=== PATIENT | female | born 1980 | race Caucasian/White ===

== ENCOUNTER 2019-04-07 05:39 | Inpatient (IN) | payer OTHER ==
[2019-04-07] MEDS ORDERED: Acetaminophen 500 MG Tab PO ONE (05:45)
[2019-04-07] MEDS ORDERED: Celecoxib 200 MG Cap PO ONE (05:45)
[2019-04-07] MEDS ORDERED: Scopolamine 1.5 MG Transdermal Patch TOP SCH (05:45)
[2019-04-07] MEDS ORDERED: Gabapentin 300 MG Cap PO ONE (05:45)
[2019-04-07] MEDS ORDERED: Dextrose 5%-Lactated Ringers 1,000 ML IV SCH (06:00)
[2019-04-07] MEDS ORDERED: fentaNYL 250 MCG/5 ML SDV ONE ×2 (06:41→08:34)
[2019-04-07] MEDS ORDERED: Ondansetron 4 MG/2 ML SDV ONE (06:42)
[2019-04-07] MEDS ORDERED: Propofol 200 MG/20 ML SDV ONE (06:42)
[2019-04-07] MEDS ORDERED: Rocuronium 50 MG/5 ML Vial ONE ×2 (06:42→08:59)
[2019-04-07] MEDS ORDERED: Glycopyrrolate 0.2 MG/ML 5 ML MDV ONE (06:42)
[2019-04-07] MEDS ORDERED: Neostigmine Methylsulfate 1 MG/ML 5 ML Syringe ONE (06:42)
[2019-04-07] MEDS ORDERED: Midazolam 1 MG/ML 2 ML SDV ONE (06:42)
[2019-04-07] MEDS ORDERED: Dexamethasone 4 MG/ML SDV ONE (06:42)
[2019-04-07] MEDS ORDERED: cefOXitin 2 GM in Sodium Chloride 0.9% 50 ML IV ONE (07:15)
[2019-04-07] MEDS ORDERED: Ketamine 500 MG/5 ML MDV IV SCH (07:30)
[2019-04-07] MEDS ORDERED: Ketamine 50 MG in Sodium Chloride 0.9% 49.5 ML IV SCH (07:30)
[2019-04-07] MEDS: cefOXitin 2 GM Vial ONE ×2 (08:10→09:48)
[2019-04-07] MEDS ORDERED: Lactated Ringers 1,000 ML ONE (09:15)
[2019-04-07] MEDS: Tranexamic Acid 1,000 MG in Sodium Chloride 0.9% 50 ML IV SCH ×2 (09:30→13:20)
[2019-04-07] MEDS ORDERED: hydrOXYzine HCl 100 MG/2 ML SDV IM ONE (09:58)
[2019-04-07] MEDS ORDERED: fentaNYL 100 MCG/2 ML SDV IVPUSH ONE ×2 (10:14→10:54)
[2019-04-07] MEDS ORDERED: Meperidine PF 100 MG/ML Syringe IM ONE (10:35)
[2019-04-07] MEDS ORDERED: Meclizine 25 MG Tab PO PRN (12:02)
[2019-04-07] MEDS ORDERED: Metoclopramide 10 MG/2 ML SDV IVPUSH PRN (12:43)
[2019-04-07] MEDS ORDERED: Ondansetron 4 MG/2 ML SDV IVPUSH PRN (12:43)
[2019-04-07] MEDS ORDERED: HYDROmorphone 1 MG/ML Syringe IV PRN (12:43)
[2019-04-07] MEDS ORDERED: Labetalol 20 MG/4 ML Syringe IVPUSH PRN (12:43)
[2019-04-07] MEDS ORDERED: diphenhydrAMINE 50 MG/ML SDV IVPUSH PRN (12:43)
[2019-04-07] MEDS ORDERED: hydrOXYzine HCl 100 MG/2 ML SDV IM PRN (12:43)
[2019-04-07] MEDS ORDERED: Pantoprazole 40 MG Vial IVPUSH SCH (14:00)
[2019-04-07] MEDS: cefOXitin 2 GM in Sodium Chloride 0.9% 50 ML IV SCH ×2 (14:55→19:59)
[2019-04-07] MEDS: Gabapentin 250 MG/5 ML Solution ML 470 ML Bottle PO SCH ×2 (14:59→20:56)
[2019-04-07] MEDS: Acetaminophen Soln 650 MG/20.3 ML UD Cup PO SCH ×2 (14:59→19:55)
[2019-04-07] MEDS ORDERED: MVI, Adult with Vitamin K 10 ML, Thiamine 200 MG, Chromium/Copper/Mang/Selen/Zn 1 ML in... IV SCH ×4 (16:00)
[2019-04-07] MEDS: Heparin Sodium 5,000 Units/ML Vial SUBCUT SCH (20:56)
[2019-04-07] MEDS: Dextrose 5%-Lactated Ringers 1,000 ML IV SCH (22:52)
[2019-04-08] MEDS: Acetaminophen Soln 650 MG/20.3 ML UD Cup PO SCH ×4 (01:31→19:46)
[2019-04-08] MEDS ORDERED: Iopamidol 612 MG/ML 50 ML SDV PO STA (01:38)
[2019-04-08] MEDS: cefOXitin 2 GM in Sodium Chloride 0.9% 50 ML IV SCH ×2 (02:18→07:28)
[2019-04-08] MEDS: HYDROmorphone 0.5 MG/0.5 ML Syringe IVPUSH PRN ×2 (02:18→07:38)
--- NOTE | 2019-04-08 02:25 | CRLCR ---
PRELIMINARY IMPRESSIONS: 1. No evidence of contrast extravasation is noted on 2 static submitted images. 2. Surgical drain is present in the left upper quadrant. Agree with preliminary interpretation. No additional findings. Dictated by: Chadd Power MD @ 04/11/2019 13:35:30 (Electronically Signed)
[2019-04-08] MEDS: Dextrose 5%-Lactated Ringers 1,000 ML IV SCH ×2 (05:19→13:32)
[2019-04-08] MEDS: Celecoxib 200 MG Cap PO SCH (07:28)
[2019-04-08] MEDS ORDERED: Ondansetron 4 MG Tab.DIS PO PRN (08:19)
[2019-04-08] MEDS: Gabapentin 250 MG/5 ML Solution ML 470 ML Bottle PO SCH ×3 (10:08→20:45)
[2019-04-08] MEDS: Heparin Sodium 5,000 Units/ML Vial SUBCUT SCH ×2 (10:08→20:46)
[2019-04-08] MEDS: SCOPOLAMINE PATCH CHECK TOP SCH (10:09)
[2019-04-08] MEDS: HYDROmorphone 2 MG Tab PO PRN ×3 (10:18→19:46)
--- NOTE | 2019-04-08 11:10 | PN ---
DATE OF SERVICE: 04/08/2019 SUBJECTIVE: Martha is postoperative day 1. She has been quite sleepy. Pain has been controlled. Oral intake did increase after nursing staff gave her some med cups. REVIEW OF SYSTEMS: Remainder of review of systems negative for any pertinent positives and negatives. OBJECTIVE: GENERAL: Martha Payne is a pleasant 38-year-old female. VITAL SIGNS: TPR is 98.1, 89, 110. Blood pressure is 101/67. Her pulse was rechecked at 89. HEENT: Negative. NECK: Supple. HEART: Regular rate and rhythm. LUNGS: Clear. ABDOMEN: Dressing is dry and intact. Abdominal binder is on. EXTREMITIES: Without peripheral edema. ASSESSMENT: Diagnostic laparoscopy with: 1. Partial gastrectomy with Carie-en-Y gastrojejunostomy. 2. Repair of paraesophageal diaphragmatic hernia and excision of mediastinal lipoma for severe gastroesophageal reflux disease, esophageal dysmotility, large paraesophageal diaphragmatic hernia, and mediastinal lipoma. Date of surgery, 04/07/2019. Surgeon, Ant Olivares MD. PLAN: Decrease IV to 100 mL/hour. Step 2 gastric bypass diet without cereal. Dressing off, may shower. Dietary consultation. Dilaudid 2 mg every 4 hours p.r.n. pain, Zofran ODT 4 mg every 4 hours p.r.n. We will evaluate p.r.n. or in a.m. Rosanna Eastman PA-C /[id number]
[2019-04-08] MEDS: Pantoprazole 40 MG Tab.CR PO SCH (11:35)
[2019-04-08] MEDS ORDERED: MVI, Adult with Vitamin K 10 ML, Thiamine 200 MG, Chromium/Copper/Mang/Selen/Zn 1 ML in... IV SCH ×4 (16:00)
[2019-04-09] MEDS: HYDROmorphone 2 MG Tab PO PRN ×3 (01:05→10:28)
[2019-04-09] MEDS: Acetaminophen Soln 650 MG/20.3 ML UD Cup PO SCH ×2 (02:23→08:01)
[2019-04-09] MEDS: Dextrose 5%-Lactated Ringers 1,000 ML IV SCH (02:35)
[2019-04-09] MEDS: Celecoxib 200 MG Cap PO SCH (08:01)
[2019-04-09] MEDS: Pantoprazole 40 MG Tab.CR PO SCH (08:01)
[2019-04-09] MEDS ORDERED: Cyanocobalamin (Vitamin B12) 1,000 MCG/ML SDV IM ONE (09:00)
[2019-04-09] MEDS: Gabapentin 250 MG/5 ML Solution ML 470 ML Bottle PO SCH (10:10)
[2019-04-09] MEDS: Heparin Sodium 5,000 Units/ML Vial SUBCUT SCH (10:11)
[2019-04-09] MEDS: SCOPOLAMINE PATCH CHECK TOP SCH (10:12)
--- NOTE | 2019-04-11 13:48 | OR ---
DATE OF PROCEDURE: 04/07/2019 SURGEON: Ant Olivares MD PREOPERATIVE DIAGNOSES: Severe gastroesophageal reflux disease with Gaona's esophagus and associated esophageal dysmotility. POSTOPERATIVE DIAGNOSES: 1. Severe gastroesophageal reflux disease with Gaona's esophagus and associated esophageal dysmotility. 2. Large paraesophageal diaphragmatic hernia. 3. Mediastinal lipoma. OPERATIVE PROCEDURES: Diagnostic laparoscopy with: 1. Partial gastrectomy with Carie-en-Y gastrojejunostomy (82255). 2. Repair of paraesophageal diaphragmatic hernia with mesh (00631). 3. Excision of mediastinal lipoma (20151). ANESTHESIA: General. PRODUCTION ENGINEER: Rosanna Eastman PA-C. INDICATIONS FOR PROCEDURE: This is a 38-year-old, presenting with ongoing severe reflux and known Gaona's esophagus. She was initially contemplating a Ksenia fundoplication, but manometry showed abnormal contractions in the proximal esophagus and poor clearance of liquids and solids, making a Ksenia fundoplication type procedure contraindicated. She was, therefore, referred for a diverting type position, which would be a proximal gastrectomy, leaving a very small proximal gastric pouch and Carie-en-Y gastrojejunostomy, thus diverting all the bile and virtually all the acid production distal to the esophagogastric junction area. This procedure would be significantly different from a bariatric procedure in terms of the gastrojejunostomy would be fashioned with a much larger size, specifically a 28 mm EEA would be used rather than 21 or 25 mm, thus resulting in gastrojejunostomy leading to a less resistance to esophageal emptying. It will also make the limb lengths quite a bit shorter than the standard bariatric procedure in terms of both the biliopancreatic limb and Carie limb. The patient is aware that she will lose some weight, but this is designed primarily for an antireflux effect. Potential risks of the procedure including bleeding, infection, leaks from various GI tract closures, problems with bowel obstruction over time, as well as the possibility of cardiopulmonary, septic, or hemorrhagic complications leading to were discussed, and the patient wishes to proceed. DETAILS OF PROCEDURE: The patient was taken to the operating room and placed in the supine position. After general endotracheal anesthesia was induced, the abdomen was prepped and draped, and the patient had been converted to a lithotomy position. At 15 cm inferior and 5 cm left of the xiphoid process, a transverse incision was made, and the peritoneal cavity entered under direct vision and inflated to 15 mmHg pressure with CO2. Laparoscope was then reinserted. No underlying trocar insertion site injuries were seen. Bilateral subcostal transversus abdominis plane blocks were then placed, and 5 additional trocars were placed throughout upper and mid abdomen. The liver was then initially retracted to view the area of esophagogastric junction. The patient was noted to have a fairly large paraesophageal hernia with prolapse of perigastric fat and some gastric fundus, as well as tongue of omentum in a plane anterior to the course of the esophagus. We then proceeded with the formation of the Carie limb. The ligament of Treitz was identified and the small bowel was then traced out 30 cm distal to that point, where it was divided transversely with a JEAN-PAUL stapler. Small bowel was then traced out an additional 120 cm, where the audi-cj-sryv enteroenterostomy was accomplished with an internal firing of the 60 mm JEAN-PAUL stapler. Common opening was then closed transversely using the same stapler. The angles of anastomosis and mesenteric defect were then approximated with some 0 Ethibond stitch. The Carie limb was then brought through an antecolic position up to the level of the esophagogastric junction without tension. The liver was once again retracted anteriorly. The patient had some incarcerated omentum within the hernia sac, which was divided away from the diaphragmatic hernia sac with Harmonic scalpel. It was felt that the patient needed a formal posterior crural repair, given the extent of the diaphragmatic hernia. The peritoneum overlying the adria- esophagogastric junction was then divided anteriorly and then along the sides of the esophagus adjacent to the right and left crura respectively, and the retroesophageal dissection eventually completed. [place] drain was placed following this, and some remaining attachments of the esophagus and the lower-most mediastinum were divided with Harmonic Scalpel. During the course of the dissection, fairly substantial mediastinal lipoma was encountered, and this was taken out in 3 segments. The crural repair was then accomplished initially with 0 Ethibond sutures, reinforced with PTFE pledgets. The size of the repair was such that we felt an absorbable mesh reinforcement would be appropriate. A Phasix ST mesh was cut into a horseshoe-type configuration and then placed behind the esophagus overlying the crural repair and then along the crura on each side for roughly 3 cm. This was fixed in place with titanium tacking screws. The greater curvature of the stomach along its mid point was then opened, and the anvil of a 28 mm EEA stapler, which had a suture attached to its tip, was placed in the stomach. This was then brought out with the suture attached to a sharp clamp at a point 2 to 3 cm distal to the gastroesophageal junction. The anvil was then brought up into that position by pulling the suture and bringing the anvil through the gastric wall. This opening in the stomach was then closed with JEAN-PAUL purple loads. The initial pouch formation was then initiated just inferior to the point where the anvil had been pulled out of the stomach after division of the lesser curvature, omentum and dissection behind the stomach at that level. This initial firing was transversely oriented with a JEAN-PAUL purple load. The pouch was then further completed with additional firings of the JEAN-PAUL stapler up to and through the angle of His. Portion of the stomach was then excised along the initial staple line from the edge of the stapler inferiorly up to the level of esophagogastric junction, thus creating a much narrower and smaller volume gastric pouch. The divided end of the Carie limb was then opened and main body of the EEA stapler was brought out through the left lateral trocar site and positioned several centimeters into the opened bowel, brought up through the anvil and united with it, thus creating the gastrojejunostomy. Upon removal of the stapler, double donuts of mucosa were noted within it, and the small bowel was closed off with a vascular staple line. At that point, the gastrojejunostomy was reinforced with some 3-0 Vicryl seromuscular stitch, along with fibrin sealant. The leak test was accomplished with injection of 120 mL of air into the area of gastric pouch via a Duval sump tube, while the Carie limb was being compressed, and the area being covered with antibiotic-containing saline solution. No leaks were identified. A single Kyle-Hernandez drain was then placed through the left lateral trocar site and positioned adjacent to the gastrojejunostomy and from there up into the splenic fossa. The trocars were then sequentially removed. The fascia at the left lateral trocar site, which had been broaden out enough to admit the 28 mm EEA stapler, was closed with 0 Vicryl stitch. The skin at each incision closed with 4-0 Vicryl stitch, which was also used to affix the drain. The patient was taken to the recovery room in satisfactory condition. Physician senior sales assistant, Rosanna Eastman, played an essential role in assisting in this case, helping to position the patient, retract structures as needed, as well as suturing and cutting sutures when indicated. Her presence improved patient's safety and decreased the operative time. Ant Olivares MD /[id number]
--- NOTE | 2019-04-11 13:50 | DISCH ---
PREOPERATIVE DIAGNOSES: 1. Severe gastroesophageal reflux disease with Gaona's esophagus associated with esophageal dysmotility. 2. Large paraesophageal diaphragmatic hernia. 3. Mediastinal lipoma. 4. History of Raynaud syndrome. 5. Bmupw-Uznbgrsdp-Krbws syndrome. 6. Fibromyalgia. OPERATIVE PROCEDURES: Done on 04/07/2019, diagnostic laparoscopy with: 1. Partial gastrectomy with Carie-en-Y gastrojejunostomy. 2. Repair of paraesophageal diaphragmatic hernia with mesh. 3. Excision of mediastinal lipoma. SUMMARY: This is a 38-year-old with severe gastroesophageal reflux disease that has become quite refractory to medical management. On workup, she was noted have Gaona's esophagus and also a significant degree of esophageal dysmotility, the latter making her a poor candidate for a Ksenia fundoplication. Given this, she will be referred for a partial gastrectomy with Carie-en-Y gastrojejunostomy with the goal of leaving only a tiny bit of gastric secreting mucosa that can reflux into the esophagus and the rest of that by means of the Carie-en-Y configuration. The patient was noted to have a large paraesophageal hernia at the time of the procedure as well with the repair being augmented with some absorbable mesh, along with excision of mediastinal lipoma. Postoperatively, the patient has done well with no significant problems. She is tolerating a step-2 diet without difficulty and will be discharged home on Tylenol 650 p.o. q.6 hours p.r.n. pain and Celebrex 200 mg p.o. q.a.m. and Dilaudid 2 mg p.o. q.4 hours p.r.n. pain #40. She is instructed to continue the Zantac and omeprazole until she is off Celebrex and discontinue those at that time. Otherwise, she can continue the Antivert as previously. Followup will be with Rosanna Eastman at [facility] in [place] on Thursday04/19/19.
== END 2019-04-09 11:05 | disposition home or self-care (01) | DRG 328 ==
LOC: JP.SDSSCHI 05:39 → JP.SDS 05:39 → EDSTATUS 07:15 → JP.MS 10:15
PROVIDERS: ADMIT Surgery; ATTEND Surgery
PROC: 0D164ZA Bypass Stomach to Jejunum, Percutaneous Endoscopic Approach (ICD-10-PCS; principal; 2019-04-07)
PROC: 0DB64ZZ Excision of Stomach, Percutaneous Endoscopic Approach (ICD-10-PCS; 2019-04-07)
PROC: 0BUT4JZ Supplement Diaphragm with Synthetic Substitute, Percutaneous Endoscopic Approach (ICD-10-PCS; 2019-04-07)
PROC: 0WBC4ZZ Excision of Mediastinum, Percutaneous Endoscopic Approach (ICD-10-PCS; 2019-04-07)
DX: K21.9 Gastro-esophageal reflux disease without esophagitis (principal); K22.70 Barrett's esophagus without dysplasia; K44.9 Diaphragmatic hernia without obstruction or gangrene; D17.4 Benign lipomatous neoplasm of intrathoracic organs; M79.7 Fibromyalgia; I45.6 Pre-excitation syndrome; I73.00 Raynaud's syndrome without gangrene; G89.29 Other chronic pain; F41.9 Anxiety disorder, unspecified; F32.9 Major depressive disorder, single episode, unspecified; E55.9 Vitamin D deficiency, unspecified; M54.5 Low back pain; Z87.891 Personal history of nicotine dependence; Z88.5 Allergy status to narcotic agent
CPT/HCPCS: 36415; 74240; 86850; 86900; 86901; 94762; A9270-GY; C1713; C1781; C9113; J0171; J0694; J1100; J1170; J1644; J2175; J2250; J2405; J2704; J2710; J2765; J2795; J3010; J3410; J3411; J3420; J3490; J7042; J7050; J7120; Q9967

== ENCOUNTER 2019-05-05 07:55 | Day surgery (SDC) | payer OTHER ==
[2019-05-05] MEDS ORDERED: Cyanocobalamin (Vitamin B12) 1,000 MCG/ML SDV IM ONE (08:30)
[2019-05-05] MEDS ORDERED: Lactated Ringers 1,000 ML IV SCH (08:30)
[2019-05-05] MEDS ORDERED: Glycopyrrolate 0.2 MG/ML 2 ML SDV IVPUSH ONE (08:30)
[2019-05-05] MEDS ORDERED: MVI, Adult with Vitamin K 10 ML, Thiamine 200 MG, Chromium/Copper/Mang/Selen/Zn 1 ML in... IV ONE ×4 (09:30)
[2019-05-05] MEDS ORDERED: Midazolam 1 MG/ML 2 ML SDV ONE (10:25)
[2019-05-05] MEDS ORDERED: fentaNYL 100 MCG/2 ML SDV ONE (10:25)
[2019-05-05] MEDS ORDERED: Propofol 200 MG/20 ML SDV ONE (10:25)
[2019-05-05] MEDS ORDERED: Pantoprazole 40 MG Vial IVPUSH ONE (10:46)
--- NOTE | 2019-05-18 16:08 | OR ---
DATE OF PROCEDURE: 05/05/2019 SURGEON: Ant Olivares MD PREOPERATIVE DIAGNOSIS: Probable stricture at gastrojejunostomy. POSTOPERATIVE DIAGNOSES: Tight stricture at gastrojejunostomy with a small area of ulceration. OPERATIVE PROCEDURE: Upper gastrointestinal endoscopy with dilation of gastrojejunostomy (03951). ANESTHESIA: IV sedation. INDICATION FOR PROCEDURE: The patient is status post a partial gastrectomy with Carie-en-Y reconstruction on 04/07/2019, who presents now with symptoms suggestive of stricturing at her gastrojejunostomy. The plan is to proceed with upper GI endoscopy with dilation as indicated. Potential risks including bleeding and perforation were discussed, and the patient wishes to proceed. DETAILS OF PROCEDURE: The patient was taken to the operating room and placed in a left lateral decubitus position. IV sedation was administered, after which the upper GI endoscope was passed orally through the length of the esophagus and into the gastric pouch. The patient was noted to have quite tight stricture at gastrojejunostomy with a little bit of ulceration and fibrinous exudate area of the gastrojejunostomy. Bard gastrointestinal balloon catheter was then centered across the anastomosis and inflated to 30-Slovenian size. This was held in position for 1 minute, after which balloon catheter was deflated and withdrawn. Adequate dilation was confirmed and the procedure then concluded. There were no evident complications. The patient was taken to the recovery room in satisfactory condition. With regard to the ulceration, the patient will be given Protonix IV in the recovery room and then given a 30-day prescription of Protonix 40 mg a day. She will be following up with Rosanna Eastman in [facility] in about 2 weeks. Ant Olivares MD Job #: [id number]
== END 2019-05-05 12:25 | disposition home or self-care (01) ==
LOC: JP.SDS 07:55
PROVIDERS: ATTEND Surgery
DX: K95.89 Other complications of other bariatric procedure (principal); K22.70 Barrett's esophagus without dysplasia; Z98.84 Bariatric surgery status; Z88.5 Allergy status to narcotic agent
CPT/HCPCS: 43245; 81025; C9113; J2250; J2704; J3010; J3411; J3420; J3490; J7120

== ENCOUNTER 2019-10-07 07:31 | Day surgery (SDC) | payer OTHER, SELFPAY ==
[~2019-10-07 07:31] MED LIST: Midazolam 1 MG/ML 2 ML SDV ONE; Propofol 200 MG/20 ML SDV ONE; fentaNYL 100 MCG/2 ML SDV ONE
[2019-10-07] MEDS ORDERED: Cyanocobalamin (Vitamin B12) 1,000 MCG/ML SDV IM ONE (07:45)
[2019-10-07] MEDS ORDERED: Lactated Ringers 1,000 ML IV SCH (08:00)
[2019-10-07] MEDS ORDERED: Glycopyrrolate 0.2 MG/ML 2 ML SDV IVPUSH ONE (08:30)
[2019-10-07] MEDS ORDERED: MVI, Adult with Vitamin K 10 ML, Thiamine 200 MG, Chromium/Copper/Mang/Selen/Zn 1 ML in... IV ONE ×4 (09:30)
[2019-10-07] MEDS ORDERED: Ondansetron 4 MG/2 ML SDV IVPUSH ONE (11:45)
[2019-10-08 17:09] LABS: H. PYLORI BREATH TEST Negative (Negative)
--- NOTE | 2019-10-17 13:54 | OR ---
DATE OF PROCEDURE: 10/07/2019 SURGEON: Ant Olivares MD PREOPERATIVE DIAGNOSIS: Dysphagia, status post partial gastrectomy. POSTOPERATIVE DIAGNOSIS: Dysphagia, status post partial gastrectomy associated with marginal ulcer. OPERATIVE PROCEDURE: Upper GI endoscopy with biopsies of gastric pouch for a CLOtest. ANESTHESIA: IV sedation. INDICATIONS FOR PROCEDURE: A 39-year-old status post a partial gastrectomy for recurrent gastroesophageal reflux disease and ongoing Gaona's esophagus on 04/09/2019. The patient was noted to have some increasing dysphagia. She was seen on 09/27/2019 and started on Protonix at that time. She does note she is having some improvement in symptoms. Plan is to proceed with upper GI endoscopy with dilation and/or biopsies as indicated. Potential risks including bleeding and perforation were discussed, and the patient wishes to proceed. DETAILS OF PROCEDURE: The patient was taken to the operating room and placed in a left lateral decubitus position. IV sedation was administered, after which the upper GI endoscope was passed orally through length of the esophagus into the gastric pouch, from there through the gastrojejunostomy roughly 20 cm into the Carie limb. Hypopharynx, larynx, upper esophageal sphincter, esophageal body, EG junction, and gastric pouch were all unremarkable. The patient did have a marginal ulcer present in the jejunum immediately adjacent to the gastrojejunostomy. This was fairly superficial in appearance over a length of about 1.5 cm. This was covered with fibrinous exudate with no significant stricturing at the gastrojejunostomy. The remainder of the visualized portions of the Carie limb were unremarkable. At this point, biopsies were obtained from the gastric pouch and sent for CLOtest for H pylori. Minimal bleeding from the biopsy site was seen, and the procedure was then concluded. Plan will be to have the patient continue on the Protonix and she will be following up with Rosanna Eastman at [facility] in roughly 1 month. Due to the low sensitivity of the biopsies of the gastric pouch for H pylori, we will also obtain an H pylori breath test in the ACU postprocedure. Ant Olivares MD /[id number]
== END 2019-10-07 12:45 | disposition home or self-care (01) ==
LOC: JP.SDS 07:31
PROVIDERS: ATTEND Surgery
DX: K28.9 Gastrojejunal ulcer, unspecified as acute or chronic, without hemorrhage or perforation (principal); K21.9 Gastro-esophageal reflux disease without esophagitis; Z90.49 Acquired absence of other specified parts of digestive tract; Z93.1 Gastrostomy status; Z88.5 Allergy status to narcotic agent; Z87.19 Personal history of other diseases of the digestive system
CPT/HCPCS: 36415; 43239; 80053; 82306; 82525; 82607; 82728; 82746; 83013; 83550; 83735; 84425; 84590; 84630; 85025; 87081; J2250; J2405; J2704; J3010; J3411; J3420; J3490; J7120